=== PATIENT | male | born 1990 | race Caucasian/White ===

== ENCOUNTER 2025-01-03 11:57 | Emergency (ER) | payer BC, SELFPAY ==
[2025-01-03 11:57] VITALS: BMI 26.9
[2025-01-03 11:59] VITALS: BP 121/7
--- NOTE | 2025-01-03 13:58 | ED.GENMED ---
History of Present Illness
General
Chief Complaint: Musculo-Skeletal Complaint
Source: patient
Exam Limitations: none
Time Seen by Provider: 01/03/25 12:22
Nursing documentation reviewed up to this point in time: agreed with
History of Present Illness
History of Present Illness:
Patient is a 34-year-old male who presents to the ER for evaluation. Patient reports he has has nose for the past month. He started with a burning sensation his left calf and noticed small area of redness and feels that he may have gotten bit by a
spider or insect. Since then he has had some intermittent numbness to the area. He went to urgent care was placed on prednisone and completed 10 days of prednisone. Recently for the past week he has noticed some pain to the left hip which
radiates down his left leg which he associates similar to sciatica pain. He presents here today because he had calf discomfort. 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
He is' concerned that there is a neurologic infection in his nerve,' or an area of necrosis.
He has not been seen by his family doctor for this. He reports he has had some fevers and sweats at night.
He does complain of pain to left knee but states that this is' specific nerve pain in his knee.'
Phy Exam
General Physical Exam
General Presentation: no apparent distress
General age: appears stated age
General Skin: warm and dry
General Habitus: normal
General Mental: alert
General Hydration: appears well hydrated
Neurological Exam
Neurological Exam: alert and oriented x3
Musculoskeletal Exam
Musculoskeletal Exam: full ROM and other (Patient with strong distal pulses bilateral lower extremities full range of motion to left hip no obvious swelling to left lower extremity no erythema swelling or redness left knee no calf tenderness or
swelling no redness to left calf)
Skin Exam
Skin Exam: normal color and warm/dry
Psychiatric Exam
Psychiatric Exam: normal mood/affect
Course
Orders/Labs/Results
Orders:
Orders
01/03/25 13:57
Venous Doppler Lwr Ext Left [US Periph Venous LOWER Ext LT] Urgent
Comment:
Reason For Exam: left calf pain
01/03/25 14:28
Complete Blood Count/With Diff Urgent
Comprehensive Metabolic Panel Urgent
01/03/25 15:21
Lyme Progressive Urgent
Abnormal Lab Results
01/03/25
14:28
RBC 4.08 L 10^6/uL
(4.70-6.10)
Hgb 12.8 L g/dL
(13.0-18.0)
Hct 37.0 L %
(39.0-52.0)
MCH 31.4 H pg
(27.0-31.0)
Absolute Neuts (auto) 7.6 H 10^3/uL
(1.4-6.5)
Absolute Monos (auto) 1.0 H 10^3/uL
(0.1-0.6)
Neutrophils % 75.5 H %
(42.2-75.2)
Lymphocytes % 13.9 L %
(20.5-51.1)
Monocytes % 9.5 H %
(1.7-9.3)
01/03/25 14:28
01/03/25 14:28
Vital Signs
Initial and Last Documented VS:
Initial Vital Signs
Temp Pulse Resp BP Pulse Ox
98.6 F 87 16 121/7 97
01/03/25 11:59 01/03/25 11:59 01/03/25 11:59 01/03/25 11:59 01/03/25 11:59
Last Documented Vital Signs
Temp Pulse Resp BP Pulse Ox
98.6 F 85 18 105/66 99
01/03/25 11:59 01/03/25 15:32 01/03/25 15:32 01/03/25 15:32 01/03/25 15:32
MDM/Problems Addressed
MDM/Problems Addressed:
No clear cause for patient's symptoms. Patient complains of pain to the left leg describes as a' nerve pain.' Also feels that he may have got bit by insect about a month ago but denies any actual bull's-eye rash. At that time he was placed on
steroids by urgent care. He denies any actual joint swelling or joint redness. Denies any recent fever or chills. Very anxious about multiple possibilities which could be possibly causing his symptoms including a 'neurological infection' or
'infectious necrosis.' He is very anxious however in no acute distress denies any recent fever chills and is afebrile here with a normal white count normal labs. He did complain of some pain to the left calf today. He does travel back and forth to
[place] from work therefore ultrasound was done and negative for blood clot.
Patient as good range of motion. Of his left leg with no joint effusions or redness, no rash or cellulitis no evidence of infection to the joint or leg. No skin infection. Good range of motion to hips and knee
He does have a family doctor however has not been evaluated for this by his providers
There is no diagnosis or cause for patient's symptoms however no concerning findings on exam and stable for discharge home with outpatient primary doctor. Lyme test ordered.
*Radiology
Radiology exam reviewed: radiology read reviewed
*Pulse Oximetry
SaO2: 97
Oxygen Mode of Delivery: Room air
Patient hypoxic: no
*Critical Care Note
Total Time (30-74mins, 75-104mins- exclusive of procedures): Not Applicable
ED Attending Note
-
Portions of this chart may have been created with voice recognition software.� Occasional wrong word or��sound alike� substitutions may have occurred due to the inherent limitations of voice recognition software.
Discharge Plan
Departure
Patient Disposition: Home (Routine Discharge)
Date of Disposition: 01/03/25
Time of Disposition: 16:12
Patient with high blood pressure during this ER visit?: No
Condition: Fair
Covid-19: Not Applicable
Discharge Problem:
leg pain
Prescriptions:
No Action
No Current Medications
0
Referrals:
Camacho Vizcaino MD [Family Provider, [facility]]
Activity Restrictions/Additional Instructions:
As discussed there were no acute findings or causes for your symptoms here in the ER.
Your ultrasound was negative for acute blood clot and your labs are unremarkable. Please follow-up with your family doctor in the next several days. Call to make an appointment. Return if any worsening of symptoms.
Interventions
Interventions:
*Risk Screen - Suicide Last Done: 01/03/25 11:59
*General Assessment Last Done: 01/03/25 12:33
*Neglect/Abuse Screening Last Done: 01/03/25 12:33
*ED- Fall Risk Assessment Last Done: 01/03/25 12:33
*ED COVID-19 Vaccine History Last Done: 01/03/25 11:59
ED-Musculoskeletal Assessment Last Done: 01/03/25 12:33
Discharge Date and Time
Print Language: PERSIAN
[2025-01-03 14:47] LABS: Hematocrit 37.0 % (39.0-52.0); Hemoglobin 12.8 g/dL (13.0-18.0); Mean Corp Hgb Conc. 34.6 g/dL (33.0-37.0); Mean Corpuscular Volume 90.7 fL (80.0-94.0); Nucleated Red Blood Cells % 0 % (-); Platelet Count 258 10^3/uL (130-400); Red Cell Dist. Width 11.9 % (11.5-14.5)
[2025-01-03 15:08] LABS: ALT (SGPT) 29 U/L (0-50); AST (SGOT) 50 U/L (17-59); Albumin 4.2 g/dl (3.5-5.0); Alkaline Phosphatase 57 U/L (38-126); Blood Urea Nitrogen 16 mg/dl (9-20); Calcium 8.8 mg/dl (8.4-10.2); Carbon Dioxide 30 mmol/L (22-30); Chloride 103 mmol/L (98-107); Estimated Creatinine Clearance 119 ml/min; Glucose 89 mg/dl (70-99); Potassium 4.0 mmol/L (3.5-5.1); Sodium 137 mmol/L (135-145); Total Protein 7.3 g/dl (6.3-8.2); eGFR > 60.00
[2025-01-03 15:32] VITALS: BP 105/66
[2025-01-04 13:36] LABS: Lyme Antibody Screen, EIA Presump. Positive (Negative)
== END 2025-01-03 16:28 | disposition home or self-care (01) ==
LOC: EMR 11:57
PROVIDERS: Nurse Practitioner; EMERGENCY PHYSICIAN Emergency Medicine; FAMILY PHYSICIAN Family Medicine
DX: M25.552 Pain in left hip (principal); M79.662 Pain in left lower leg; R20.0 Anesthesia of skin; M25.562 Pain in left knee; R50.9 Fever, unspecified; R61 Generalized hyperhidrosis; G43.909 Migraine, unspecified, not intractable, without status migrainosus; Z91.018 Allergy to other foods
CPT/HCPCS: 99284; 80053; 85025; 86617; 86618; 93971

== ENCOUNTER → 2025-01-04 16:05 | Outpatient (REF) | payer BC, SELFPAY | LOC: RAD 16:05 | PROVIDERS: ATTENDING PHYSICIAN Family Medicine | DX: M25.561 Pain in right knee (principal); M25.562 Pain in left knee; M54.50 Low back pain, unspecified; R10.2 Pelvic and perineal pain; M25.572 Pain in left ankle and joints of left foot | CPT/HCPCS: 72110; 72170; 73564; 73610 ==